=== PATIENT | female | born 1960 | race Caucasian/White ===

== ENCOUNTER 2021-04-15 12:16 | Emergency (ER) | payer SELFPAY ==
[~2021-04-15] VITALS: Ht 165.1 cm; Wt 103.9 kg
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
[2021-04-15] MEDS ORDERED: IBUPROFEN 600 MG TABLET ONE (13:28)
[2021-04-15] MEDS ORDERED: ACETAMINOPHEN ES 500 MG TABLET ONE (13:28)
[2021-04-15] MEDS ORDERED: ACETAMINOPHEN ES 500 MG TABLET PO ONE (13:30)
[2021-04-15] MEDS ORDERED: IBUPROFEN 600 MG TABLET PO ONE (13:30)
[2021-04-15 13:34] VITALS: BP 159/102
--- NOTE | 2021-04-15 13:34 | NUR ---
BLOOD PRESSURE IS 159[address] RUBIO MADE AWARE WITH NO NEW ORDERS.
== END 2021-04-15 13:49 | disposition home or self-care (01) ==
LOC: ER 12:18
DX: R07.89 Other chest pain (principal); I10 Essential (primary) hypertension; F41.9 Anxiety disorder, unspecified; F32.9 Major depressive disorder, single episode, unspecified; V49.49XA Driver injured in collision with other motor vehicles in traffic accident, initial encounter; Y93.89 Activity, other specified; Y92.413 State road as the place of occurrence of the external cause; Y99.8 Other external cause status
CPT/HCPCS: 71045-TC